=== PATIENT | male | born 1985 | race Caucasian/White ===

== ENCOUNTER 2016-06-14 09:41 | Emergency (ER) | payer OTHER ==
[2016-06-14 10:14] VITALS: BP 126/80
[2016-06-14] MEDS ORDERED: BSS OPTH.SOL* BTL ONE (10:20)
[2016-06-14] MEDS ORDERED: Fluorescein Sodium TOPICAL* 1 MG TEST ONE (10:20)
[2016-06-14] MEDS ORDERED: Tetracaine 0.5% OPTH.SOL 15ML* BTL ONE (10:21)
--- NOTE | 2016-06-14 11:02 | UC ---
Eye Complaint HPI - HPI Summary HPI Summary: YESTERDAY AFTERNOON, WAS REPAIRING HIS CHILD'S TOY AND THE TOY SLIPPED, RICOCHETED AND HIT LEFT EYE. PAIN WORSE WITH TEARING THIS MORNING. - History of Current Complaint Chief Complaint: UCEye Stated Complaint: LT EYE INJURY Time Seen by Provider: 06/14/16 10:10 Hx Obtained From: Patient, Family/[employer] Onset/Duration: Sudden Onset, Lasting Hours, Still Present Timing: Hours Severity Initially: Mild Severity Currently: Moderate Location of Injury: Globe, Other - CORNEA Character: Dull Aggravating Factor(s): Light Alleviating Factor(s): Darkness Associated Signs And Symptoms: Positive: Photophobia, Drainage (Clear) Related History: Trauma - Risk Factors Penetrating Injury Risk Factor: Negative Acute Glaucoma Risk Factors: Negative Optic Artery Occlusion Risk Factors: Negative - Allergies/Home Medications Allergies/Adverse Reactions: Allergies Allergy/AdvReac Type Severity Reaction Status Date / Time Amoxicillin [From Augmentin] Allergy Intermediate Itching Verified 04/20/13 20: 27 Clavulanic Acid Allergy Intermediate Itching Verified 04/20/13 20:27 [From Augmentin] PMH/Surg Hx/FS Hx/Imm Hx Previously Healthy: Yes Endocrine History Of: Denies: Diabetes, Thyroid Disease Cardiovascular History Of: Denies: Cardiac Disorders, Hypertension Respiratory History Of: Denies: COPD, Asthma GI/ History Of: Denies: Ulcer - Surgical History Surgical History: None - Family History Known Family History: Negative: Diabetes, Other - NO GLAUCOMA - Social History Occupation: Employed Full-time Lives: With Family Alcohol Use: Occasionally Substance Use Type: None Smoking Status (MU): Never Smoked Tobacco Review of Systems Constitutional: Negative Skin: Negative Eyes: Drainage, Photophobia ENT: Negative Respiratory: Negative Cardiovascular: Negative Gastrointestinal: Negative Genitourinary: Negative Motor: Negative Neurovascular: Negative Musculoskeletal: Negative Neurological: Negative Psychological: Negative All Other Systems Reviewed And Are Negative: Yes Physical Exam Triage Information Reviewed: Yes Appearance: Well-Appearing, No Pain Distress, Well-Nourished Vital Signs: Initial Vital Signs Temp 98.1 F 06/14/16 10:09 Pulse 53 06/14/16 10:09 Resp 18 06/14/16 10:09 BP 126/80 06/14/16 10:09 Pulse Ox 99 06/14/16 10:09 Vital Signs Reviewed: Yes Eyes: Positive: Discharge, Other: - FLUORESCEIN UPTAKE LEFT EYE CORNEA FROM 1 OCLOCK TO 2 OCLOCK. NEGATIVE SIDEL'S SIGN ENT Exam: Normal ENT: Positive: Normal ENT inspection, Hearing grossly normal, Pharynx normal, TMs normal Dental Exam: Normal Neck exam: Normal Neck: Positive: Supple, Nontender, No Lymphadenopathy Respiratory Exam: Normal Respiratory: Positive: Chest non-tender, Lungs clear, Normal breath sounds, No respiratory distress, No accessory muscle use Cardiovascular Exam: Normal Cardiovascular: Positive: RRR, No Murmur, Pulses Normal Abdominal Exam: Normal Abdomen Description: Positive: Nontender, No Organomegaly Musculoskeletal Exam: Normal Musculoskeletal: Positive: Strength Intact, ROM Intact, No Edema Neurological Exam: Normal Psychological Exam: Normal Psychological: Positive: Normal Response To Family Skin Exam: Normal Eye Complaint Course/Dx - Differential Dx/Diagnosis Differential Diagnosis/HQI/PQRI: Conjunctivitis, Corneal Abrasion Provider Diagnoses: CORNEAL ABRASION LEFT EYE, Discharge - Discharge Plan Condition: Stable Disposition: HOME Prescriptions: Neomycin/Polymy/Dex OPTH.SUSP* [Maxitrol Opth Susp 0.1%*] 1 drop LEFT EYE TID # 1 bottle Patient Education Materials: Corneal Abrasion (ED) Forms: *Work Release Referrals: [facility] [place] [facility]FERR[facility] [Outside] No Primary Care Phys,NOPCP [Primary Care Provider] -
== END 2016-06-14 11:00 | disposition home or self-care (01) ==
LOC: UCEAST 09:41
DX: S05.02XA Injury of conjunctiva and corneal abrasion without foreign body, left eye, initial encounter (principal); S00.212A Abrasion of left eyelid and periocular area, initial encounter; W22.8XXA Striking against or struck by other objects, initial encounter; Y93.9 Activity, unspecified; Y99.9 Unspecified external cause status; Z88.1 Allergy status to other antibiotic agents
CPT/HCPCS: 99212; A9270-GY; G0463

== ENCOUNTER 2018-01-01 10:05 | Emergency (ER) | payer OTHER ==
--- NOTE | 2018-01-01 11:04 | ED ---
Abdominal Pain/Male - HPI Summary HPI Summary: 32 y/o male presents to the ED c/o constant R sided lower ABD pain, starting 3 days ago. Currently the pain is at a 1-2/10. Sitting up makes the pain worse. Pt states that when he lies down the pain moves to his R flank. Associated sx: diarrhea and vomiting first day the pain started, nausea. Several weeks ago the patient had a similar, milder episode that resovled spontaneously. No surgical history. Father - arrythmia and enlarged heart. - History of Current Complaint Chief Complaint: EDAbdPain Stated Complaint: ABD PAIN Time Seen by Provider: 01/01/18 11:02 Hx Obtained From: Patient Onset/Duration: Lasting Days, Still Present Timing: Constant Severity Currently: Mild Pain Intensity: 2 Pain Scale Used: 0-10 Numeric Location: Suprapubic - R side Radiates: Yes Radiates to: Flank - R side Aggravating Factor(s): Movement - sitting up Alleviating Factor(s): Nothing Associated Signs And Symptoms: Positive: Nausea, Vomiting, Diarrhea - Allergies/Home Medications Allergies/Adverse Reactions: Allergies Allergy/AdvReac Type Severity Reaction Status Date / Time amoxicillin [From Augmentin] Allergy Hives Verified 01/01/18 10:11 clavulanic acid Allergy Hives Verified 01/01/18 10:11 [From Augmentin] Home Medications: Home Medications Ibuprofen TAB* [Advil TAB*] 800 mg PO Q6H PRN 01/01/18 [History Confirmed ] PMH/Surg Hx/FS Hx/Imm Hx Previously Healthy: No Endocrine/Hematology History: Denies: Hx Diabetes, Hx Thyroid Disease Cardiovascular History: Denies: Hx Hypertension Respiratory History: Denies: Hx Asthma, Hx Chronic Obstructive Pulmonary Disease (COPD) GI History: Denies: Hx Ulcer Musculoskeletal History: Denies: Hx Scoliosis Neurological History: Denies: Hx Headaches Infectious Disease History: No Infectious Disease History: Denies: Hx Hepatitis, Hx Human Immunodeficiency Virus (HIV), Traveled Outside the [place] in Last 30 Days - Family History Known Family History: Positive: Cardiac Disease - father - arrythmia Negative: Diabetes, Other - NO GLAUCOMA - Social History Alcohol Use: Occasionally Substance Use Type: Reports: None Smoking Status (MU): Never Smoked Tobacco Review of Systems Constitutional: Negative Eyes: Negative ENT: Negative Cardiovascular: Negative Respiratory: Negative Positive: Abdominal Pain, Vomiting, Diarrhea, Nausea Genitourinary: Negative Musculoskeletal: Negative Skin: Negative Neurological: Negative Psychological: Normal All Other Systems Reviewed And Are Negative: Yes Physical Exam - Summary Physical Exam Summary: VITAL SIGNS: Reviewed. GENERAL: Patient is a well-developed and nourished male who is lying comfortable in the stretcher. Patient is not in any acute respiratory distress. HEAD AND FACE: Normocephalic and atraumatic. EYES: PERRLA, EOMI x 2, No injected conjunctiva. EARS: Hearing grossly intact. Ear canals and tympanic membranes are WNL. MOUTH: Oropharynx within normal limits. NECK: Supple, trachea is midline, no adenopathy, no JVD. CHEST: Symmetric, no tenderness at palpation LUNGS: Clear to auscultation bilaterally. No wheezing or crackles. CVS: RRR, S1 and S2 present, no murmurs or gallops appreciated. ABDOMEN: Soft, RLQ tenderness. No signs of distention. Positive bowel sounds. No rebound no guarding, and no masses palpated. No abdominal bruit or pulsations. EXTREMITIES: FROM in all major joints, no edema, no cyanosis or clubbing. NEURO: Alert and oriented x 3. No acute neurological deficits. Speech is normal. SKIN: Dry and warm Triage Information Reviewed: Yes Vital Signs On Initial Exam: Initial Vitals Temp Pulse Resp BP Pulse Ox 97.1 F 64 16 140/86 98 01/01/18 10:09 01/01/18 10:09 01/01/18 10:09 01/01/18 10:09 01/01/18 10:09 Vital Signs Reviewed: Yes Diagnostics - Vital Signs Vital Signs Temp Pulse Resp BP Pulse Ox 01/01/18 10:09 97.1 F 64 16 140/86 98 - Laboratory Result Diagrams: 01/01/18 11:30 01/01/18 11:30 Lab Statement: Any lab studies that have been ordered have been reviewed, and results considered in the medical decision making process. - CT ABD/PEL CT CT Interpretation Completed By: Radiologist - Normal appendix. No evidence of bowel obstruction. No abnormal masses or fluid collections are noted. ED PHYSICIAN REVIEWS AND AGREES. - EKG 1 EKG Interpretation: 11:14 - SR @ [address] Elevations. Normal axis. Re-Evaluation - Re-Evaluation 1 Re-Evaluation Time: 14:30 Comment: discuss plan to d/c Abdominal Pain Fem Course/Dx - Course Assessment/Plan: 32 y/o male presents to the ED c/o constant R sided lower ABD pain, starting 3 days ago. Currently the pain is at a 1-2/10. Sitting up makes the pain worse. Pt states that when he lies down the pain moves to his R flank. Associated sx: diarrhea and vomiting first day the pain started, nausea. Several weeks ago the patient had a similar, milder episode that resolved spontaneously. No surgical history. Father - arrhythmia and enlarged heart. Blood work without any significant abnormality. Abdominopelvic CT impression: normal appendix. No evidence of bowel obstruction. No abnormal masses or fluid collection and noted. The ED course I did not find any hernias and he has good femoral pulses. The patient was given Toradol and the symptoms improved. Therefore the patient will be discharged home with follow-up with PCP. I discussed all the findings and test results with the patient. Patient was instructed to return to the emergency room immediately if any of the symptoms return or worsens. Plan of care was discussed with the patient and understands and agrees. All questions were answered at patient satisfaction. There were no further complaints or concerns. Lung exam before discharge: CTA B /L. Good air exchange. No wheezing or crackles heard. CVS: S1 and S2 present. No murmurs appreciated. Patient is alert and oriented x 3. Patient is hemodynamically stable. Patient will be discharged home with follow up PCP in the next 2-3 days - Diagnoses Differential Diagnosis/HQI/PQRI: Appendicitis, Bowel Obstruction, Constipation, Diverticulitis, Renal Colic, Urinary Tract Infection Provider Diagnoses: RLQ abdominal pain Discharge - Sign-Out/Discharge Documenting (check all that apply): Patient Departure - Discharge Plan Condition: Stable Disposition: HOME Patient Education Materials: Abdominal Pain (ED) [place]: [facility] [place]Outside] - 4 Days (PLEASE F/U IN 3-5 DAYS) Additional Instructions: RETURN TO THE ED FOR WORSENING SYMPTOMS - Billing Disposition and Condition Condition: STABLE Disposition: Home - Attestation Statements Document Initiated by Scribe: Yes Documenting Scribe: Son Baez Provider For Whom Scribe is Documenting (Include Credential): Bayron Addison MD Scribe Attestation: Son Loaiza, scribed for Bayron Addison MD on 01/01/18 at 1753. Scribe Documentation Reviewed: Yes Provider Attestation: The documentation as recorded by the scribeSon accurately reflects the service I personally performed and the decisions made by me, Bayron Addison MD
[2018-01-01] MEDS ORDERED: NS 0.9% 1000 ML* 1,000 ML IV ONE (11:10)
[2018-01-01 11:54] LABS: ABS Basophils 0 10^3/ul (0-0.2); ABS Eosinophils 0.1 10^3/ul (0-0.6); ABS Lymphocytes 2.2 10^3/ul (1.0-4.8); ABS Monocytes 0.7 10^3/ul (0-0.8); ABS Nucleated RBC 0 10^3/ul; Eosinophil % 1.3 % (0-6); Hematocrit 44 % (42-52); Hemoglobin 15.5 g/dl (14.0-18.0); Lymphocyte % 31.4 % (25-47); Mean Corpuscular HGB Conc 35 g/dl (31-36); Mean Corpuscular Hemoglobin 31 pg (27-31); Mean Corpuscular Volume 90 fL (80-94); Mean Platelet Volume 8.6 um3 (7.4-10.4); Nucleated Red Blood Cells % 0.1; Platelet Count 213 10^3/ul (150-450); Red Blood Count 4.95 10^6/ul (4.00-5.40); Red Cell Distribution Width 13 % (10.5-15); White Blood Count 7.1 10^3/ul (3.5-10.8)
[2018-01-01 12:03] LABS: Urine Appearance Clear; Urine Blood Negative (Negative); Urine Color Yellow; Urine Ketones Negative (Negative); Urine Protein Negative (Negative); Urine Specific Gravity 1.018 (1.010-1.030); Urine Urobilinogen Negative (Negative)
[2018-01-01 12:13] LABS: EGFR Non-African American 94.2 (>60)
[2018-01-01] MEDS ORDERED: Iohexol 300* (CONTRAST) 10 ML SDV IV ONE (12:25)
--- NOTE | 2018-01-01 14:18 | RAD ---
Indication: Right lower quadrant pain. Contrast: Administered 150.0 ml of OMNIPAQUE 300 mg/ml CT of the abdomen and pelvis was performed after oral and IV contrast administration. Coronal and sagittal reconstructed images were obtained. The lung bases demonstrate no pleural fluid, nodules or masses. Heart demonstrates no pericardial effusion. The liver is normal in size. No focal lesions or intrahepatic duct dilatation is noted. The spleen is normal in size. The pancreas demonstrates no mass or pancreatic duct dilatation. No adrenal lesions are noted. The kidneys demonstrate symmetric nephrograms without focal lesions. The gallbladder demonstrates suggestion of a large gallstone in the neck of the gallbladder which is minimally hyperdense. No pericholecystic fluid or wall thickening is identified. The common duct is not dilated. Aorta and inferior vena cava are unremarkable. No retroperitoneal lymphadenopathy is noted. CT of pelvis demonstrates no free fluid. The prostate and seminal vesicles are unremarkable. No pelvic adenopathy is noted. Normal-appearing appendix is noted. No evidence of bowel obstruction is identified. The bony structures are grossly unremarkable. IMPRESSION: Normal appendix. No evidence of bowel obstruction. No abnormal masses or fluid collections are noted.
[2018-01-01] MEDS ORDERED: Ketorolac INJ* 30 MG/ML 1 ML VIAL IM ONE (14:28)
[2018-01-01] MEDS ORDERED: Ketorolac INJ* 30 MG/ML 1 ML VIAL IV PUSH ONE (14:35)
[2018-01-01 14:53] VITALS: BP 125/69
== END 2018-01-01 14:53 | disposition home or self-care (01) ==
LOC: ED 10:05
DX: R10.31 Right lower quadrant pain (principal)
CPT/HCPCS: 36415; 74177; 80053; 81003; 83605; 83690; 85025; 86140; 93005; 96361; 96372; 96374; 96375; 99283; J1885; Q9967